=== PATIENT | female | born 1990 | race Caucasian/White ===

== ENCOUNTER 2021-06-20 10:07 | Emergency (ER) | payer BC ==
[2021-06-20] MEDS ORDERED: Sodium Chloride 0.9% 1000 ML 1,000 ML IV STA (10:13)
[2021-06-20] MEDS ORDERED: APRESOLINE 20 MG/ML INJ IV ONE (10:23)
[2021-06-20 10:38] LABS: Absolute Neutrophil Ct (ANC) 4.24 (1.4-6.9); BASOPHIL % 0.4 % (0.0-0.4); Basophil (Absolute #) 0.03 (0-0.4); Eosinophil % 1.3 % (0.00-5.0); Eosinophil (Absolute #) 0.09 (0-0.5); Hematocrit 40.5 % (35-47); Hemoglobin 13.2 gm/dl (12.0-16.0); Lymphocyte (Absolute #) 1.98 (1.0-4.6); Mean Cell Volume 85.6 fl (78-100); Mean Corpuscular Hemoglobin 27.9 pg (26-32); Mean Corpuscular Hgb Concent. 32.6 g/dl (32-36); Mean Platelet Volume 10.3 fl (7.5-11.0); Monocyte (Absolute #) 0.48 (0.0-1.3); Neutrophil % 62.3 % (36.0-66.0); Platelet Count 387 K/mm3 (150-450); Red Blood Count 4.73 M/mm3 (4.1-5.4); Red Cell Distribution Width 12.5 % (11.5-14.0); White Blood Count 6.8 K/mm3 (4.0-10.5)
[2021-06-20 10:50] LABS: INR 1.12 (0.8-3.0); PROTIME 13.2 SECONDS (9.4-12.5)
[2021-06-20 10:53] LABS: PTT 36.2 SECONDS (25.1-36.5)
[2021-06-20 11:04] LABS: ALBUMIN 4.7 g/dL (3.5-5.0); ALKALINE PHOSPHATASE 75 U/L (38-126); AMYLASE 42 U/L (30-110); ANION GAP 14.6 MEQ/L (5-15); BLOOD UREA NITROGEN 12 mg/dL (7-17); CHLORIDE 99 mmol/L (98-107); Calcium 9.7 mg/dL (8.4-10.2); Carbon Dioxide 27 mmol/L (22-30); Creatinine 1 0.91 mg/dL (0.52-1.04); EST GLOMERULAR FILTRATION RATE > 60.0 ML/MIN; Glucose 93 mg/dL (74-106); LIPASE 21 U/L (23-300); MAGNESIUM 1.9 mg/dL (1.6-2.3); NT PRO BNP 27.1 pg/mL (0-450); Potassium 3.1 mmol/L (3.5-5.1); SGOT/AST 28 U/L (14-36); SGPT/ALT 35 U/L (0-35); SODIUM 137 mmol/L (137-145); Total Protein 8.5 g/dL (6.3-8.2)
[2021-06-20 11:35] VITALS: PULSE 105; O2SAT 99
[2021-06-20 12:10] VITALS: BP 120/88
--- NOTE | 2021-06-20 12:10 | ERPHSYRPT ---
- History of Present Illness Time Seen by Provider: 06/20/21 10:25 Source: patient Exam Limitations: no limitations Patient Subjective Stated Complaint: PT states "I feel weak and my hands and feet are tingling." Triage Nursing Assessment: PT presented alert and oriented X 3, skin wpd Pt ambulates with an upright steady gait, able to speak in clear full sentences pt in no apparent respiratory distress. 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 She presents with a complaint of starting with tingling in both arms and legs yesterday at 4 PM. She also reports swelling it despite the fact she is on a diuretic and she is concerned about renal failure because she was told at a clinic 2 weeks ago that she had weird labs. She also has been on Adipex for the past 2 weeks. She has a family history of hypertension and her blood pressure is elevated on admission. Allergies/Adverse Reactions: Penicillins Allergy (Severe, Verified 06/20/21 10:18) Hives Home Medications: Carvedilol 3.125 mg [Coreg 3.125 MG] 3.125 mg PO BID 06/20/21 [History] Hydrochlorothiazide 25 mg [hydroDIURIL 25 MG] 25 mg PO DAILY 06/20/21 [Hi story] Phentermine HCl 1 tab PO DAILY 06/20/21 [History] Hx Tetanus, Diphtheria Vaccination/Date Given: No Hx Influenza Vaccination/Date Given: Yes Hx Pneumococcal Vaccination/Date Given: No Immunizations Up to Date: Yes Travel Risk - International Travel Have you traveled outside of the country in past 3 weeks: No - Coronavirus Screening Are you exhibiting any of the following symptoms?: No Close contact with a COVID-19 positive Pt in past 14-21 Days: No - Vaccine Status Have you recieved a Covid-19 vaccination: No - Review of Systems Constitutional: No Fever, No Chills Eyes: No Symptoms Ears, Nose, & Throat: No Symptoms Respiratory: No Cough, No Dyspnea Cardiac: No Chest Pain, No Edema, No Syncope Abdominal/Gastrointestinal: No Abdominal Pain, No Nausea, No Vomiting, No Diarrhea Genitourinary Symptoms: No Dysuria Musculoskeletal: No Back Pain, No Neck Pain Skin: No Rash Neurological: Parasthesia, No Dizziness, No Focal Weakness, No Sensory Changes Psychological: No Symptoms Endocrine: No Symptoms All Other Systems: Reviewed and Negative - Past Medical History Pertinent Past Medical History: Yes Neurological History: No Pertinent History ENT History: No Pertinent History Cardiac History: Hypertension Respiratory History: No Pertinent History Endocrine Medical History: No Pertinent History Musculoskeletal History: No Pertinent History GI Medical History: No Pertinent History History: No Pertinent History Psycho-Social History: Anxiety Female Reproductive Disorders: No Pertinent History - Past Surgical History Past Surgical History: No - Social History Smoking Status: Never smoker Exposure to second hand smoke: No Drug Use: none Patient Lives Alone: No - Female History Hx Last Menstrual Period: mirena Hx Now: No - Nursing Vital Signs Nursing Vital Signs: Initial Vital Signs Temperature 99.1 F 06/20/21 10:12 Pulse Rate 109 H 06/20/21 10:12 Respiratory Rate 20 06/20/21 10:12 Blood Pressure 161/111 06/20/21 10:12 O2 Sat by Pulse Oximetry 100 06/20/21 10:12 Pain Scale Pain Intensity 0 - [place] Coma Scale Best Eye Response ([place]): (4) open spontaneously Best Verbal Response ([place]): (5) oriented Best Motor Response ([place]): (6) obeys commands [place] Total: 15 - Physical Exam General Appearance: no apparent distress, alert Eye Exam: bilateral eye: PERRL, EOMI Ears, Nose, Throat Exam: normal ENT inspection, moist mucous membranes Neck Exam: normal inspection, non-tender, supple Respiratory: normal breath sounds, lungs clear, airway intact, No respiratory distress Cardiovascular: regular rate/rhythm, No edema Gastrointestinal: soft, No tenderness, No distention Back Exam: normal inspection Extremity Exam: normal inspection, No pedal edema Mental Status: alert, 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 Coordination/Gait: normal finger to nose, normal gait Skin Exam: normal color, warm, dry, No rash SpO2: 99 - Course Nursing assessment & vital signs reviewed: Yes EKG Interpreted by Me: RATE ([id number]), Sinus Tach, NORMAL AXIS, NORMAL QRS, Other - Radiology Exams Chest X-ray Interpretation: Interpreted by me, Negative Ordered Tests: Active Orders 24 hr Category Date Time Status EKG-ER Only STAT Care 06/20/21 10:13 Active IV Insertion STAT Care 06/20/21 10:13 Active NPO (ED) STAT Care 06/20/21 10:16 Active CHEST 1 VIEW (PORTABLE) Stat Exams 06/20/21 10:40 Taken AMYLASE Stat Lab 06/20/21 10:25 Completed CBC W DIFF Stat Lab 06/20/21 10:25 Completed CMP Stat Lab 06/20/21 10:25 Completed D-DIMER QUANTITATIVE Stat Lab 06/20/21 10:25 Completed HCG QUALITATIVE,SERUM Stat Lab 06/20/21 10:25 Completed LIPASE Stat Lab 06/20/21 10:25 Completed Lactic Acid Stat Lab 06/20/21 11:35 Completed MAGNESIUM Stat Lab 06/20/21 10:25 Completed NT PRO BNP Stat Lab 06/20/21 10:25 Completed PROTIME WITH INR Stat Lab 06/20/21 10:25 Completed PTT Stat Lab 06/20/21 10:25 Completed TROPONIN Q3H Lab 06/20/21 10:25 Completed TROPONIN Q3H Lab 06/20/21 13:15 Ordered TROPONIN Q3H Lab 06/20/21 16:15 Ordered TROPONIN Q3H Lab 06/20/21 19:15 Ordered TROPONIN Q3H Lab 06/20/21 22:15 Ordered UA W/RFX UR CULTURE Stat Lab 06/20/21 10:14 Ordered Urine Triage Profile Stat Lab 06/20/21 10:14 Ordered Medication Summary Discontinued Medications Generic Name Dose Route Start Last Admin Trade Name Freq PRN Reason Stop Dose Admin Hydralazine HCl 5 mg 06/20/21 10:23 Hydralazine Hcl 20 Mg/Ml Vial IV 06/20/21 10:24 STAT ONE Sodium Chloride 1,000 mls @ 999 mls/hr 06/20/21 10:13 Sodium Chloride 0.9% 1000 Ml IV 06/20/21 11:13 .Q1H1M STA Lab/Rad Data: Laboratory Result Diagrams 06/20/21 10:25 06/20/21 10:25 Laboratory Results 06/20/21 06/20/21 06/20/21 Range/Units 11:35 10:25 10:25 WBC (4.0-10.5) K/mm3 RBC (4.1-5.4) M/mm3 Hgb (12.0-16.0) gm/dl Hct (35-47) % MCV (78-100) fl MCH (26-32) pg MCHC (32-36) g/dl RDW (11.5-14.0) % Plt Count (150-450) K/mm3 MPV (7.5-11.0) fl Gran % (36.0-66.0) % Eos # (Auto) (0-0.5) Absolute Lymphs (auto) (1.0-4.6) Absolute Monos (auto) (0.0-1.3) Lymphocytes % (24.0-44.0) % Monocytes % (0.0-12.0) % Eosinophils % (0.00-5.0) % Basophils % (0.0-0.4) % Absolute Granulocytes (1.4-6.9) Basophils # (0-0.4) PT (9.4-12.5) SECONDS INR (0.8-3.0) APTT (25.1-36.5) SECONDS D-Dimer (215-500) ng/mL Sodium (137-145) mmol/L Potassium (3.5-5.1) mmol/L Chloride (98-107) mmol/L Carbon Dioxide (22-30) mmol/L Anion Gap (5-15) MEQ/L BUN (7-17) mg/dL Creatinine (0.52-1.04) mg/dL Estimated GFR ML/MIN Glucose (74-106) mg/dL Lactic Acid 1.0 (0.4-2.0) Calcium (8.4-10.2) mg/dL Magnesium (1.6-2.3) mg/dL Total Bilirubin (0.2-1.3) mg/dL AST (14-36) U/L ALT (0-35) U/L Alkaline Phosphatase (38-126) U/L Troponin I < 0.012 (0.000-0.034) ng/mL NT-Pro-B Natriuret Pep (0-450) pg/mL Serum Total Protein (6.3-8.2) g/dL Albumin (3.5-5.0) g/dL Amylase (30-110) U/L Lipase (23-300) U/L Serum , Qual NEGATIVE (Negative) 06/20/21 06/20/21 06/20/21 Range/Units 10:25 10:25 10:25 WBC 6.8 (4.0-10.5) K/mm3 RBC 4.73 (4.1-5.4) M/mm3 Hgb 13.2 (12.0-16.0) gm/dl Hct 40.5 (35-47) % MCV 85.6 (78-100) fl MCH 27.9 (26-32) pg MCHC 32.6 (32-36) g/dl RDW 12.5 (11.5-14.0) % Plt Count 387 (150-450) K/mm3 MPV 10.3 (7.5-11.0) fl Gran % 62.3 (36.0-66.0) % Eos # (Auto) 0.09 (0-0.5) Absolute Lymphs (auto) 1.98 (1.0-4.6) Absolute Monos (auto) 0.48 (0.0-1.3) Lymphocytes % 29.0 (24.0-44.0) % Monocytes % 7.0 (0.0-12.0) % Eosinophils % 1.3 (0.00-5.0) % Basophils % 0.4 (0.0-0.4) % Absolute Granulocytes 4.24 (1.4-6.9) Basophils # 0.03 (0-0.4) PT 13.2 H (9.4-12.5) SECONDS INR 1.12 (0.8-3.0) APTT 36.2 (25.1-36.5) SECONDS D-Dimer 276 (215-500) ng/mL Sodium 137 (137-145) mmol/L Potassium 3.1 L (3.5-5.1) mmol/L Chloride 99 (98-107) mmol/L Carbon Dioxide 27 (22-30) mmol/L Anion Gap 14.6 (5-15) MEQ/L BUN 12 (7-17) mg/dL Creatinine 0.91 (0.52-1.04) mg/dL Estimated GFR > 60.0 ML/MIN Glucose 93 (74-106) mg/dL Lactic Acid (0.4-2.0) Calcium 9.7 (8.4-10.2) mg/dL Magnesium 1.9 (1.6-2.3) mg/dL Total Bilirubin 0.60 (0.2-1.3) mg/dL AST 28 (14-36) U/L ALT 35 (0-35) U/L Alkaline Phosphatase 75 (38-126) U/L Troponin I (0.000-0.034) ng/mL NT-Pro-B Natriuret Pep 27.1 (0-450) pg/mL Serum Total Protein 8.5 H (6.3-8.2) g/dL Albumin 4.7 (3.5-5.0) g/dL Amylase 42 (30-110) U/L Lipase 21 L (23-300) U/L Serum , Qual (Negative) - Progress Progress: improved - Departure Departure Disposition: Home Clinical Impression: Anxiety Condition: Stable Critical Care Time: No Referrals: MEHNAZ OROZCO MD [Primary Care Provider] - Follow up/PCP as directed Prescriptions: Alprazolam [Xanax] 0.5 mg PO BID 3 Days #6 tablet
--- NOTE | 2021-06-20 18:47 | XRAY ---
Indication: Short of breath and weakness. Increased blood pressure. Comparison: None Portable chest demonstrates normal heart, lungs, and bony thorax.
== END 2021-06-20 12:37 | disposition home or self-care (01) ==
LOC: ED 10:07
DX: F41.9 Anxiety disorder, unspecified (principal); I10 Essential (primary) hypertension
CPT/HCPCS: 36000; 36415; 71045; 80053; 81025; 82150; 83605; 83690; 83735; 83880; 84484; 85025; 85379; 85610; 85730; 93005; 99284